=== PATIENT | male | born 1975 | race Caucasian/White ===

== ENCOUNTER 2022-05-17 15:15 | Observation (INO) ==
--- NOTE | 2022-05-17 15:42 | Emergency Department Note ---
Impression & Plan Intentional overdose, Grubbs disease, Depression, Nausea & vomiting, Acute dehydration ED Provider Note NAME: ANA PAULA LOPEZ AGE: 46 SEX: M : 1975 ARRIVES VIA: Ambulance INFORMANT: Patient, ED PROVIDER(S): John Paul Simeon MD CHIEF COMPLAINT: Overdose MEDICAL DECISION MAKING: Patient presents due to concern for risk for Adderall ingestion taking 1.5 mg around 1 PM. I did speak with poison control and the patient did have blood work completed along with an EKG and tox labs. The patient was ordered IV fluids. Patient control recommended a 6-hour observation period but given the relatively low amount believe that he would be medically cleared at that time. They did make additional recommendations including if the patient had prolonged QT to give mag or if the patient's QRS was wide to give bicarb. It is stated that sometimes this can cause some associated tachycardia and hypotension. They recommended supportive care. Patient does have noted ST changes with associated tachycardia and given the patient's vomiting do believe the patient would benefit from medical admission with psychiatric consult. I did speak with the on-call hospitalist Mat Hathaway PA-C and admitted to the medicine service by Dr. Brasher. Unsure as to whether or not EKG changes are new or old but troponin is negative. Patient denies any chest pains or shortness of breath. Document consults/transfers/case management discussions-also decisions not to test/admit/transfer Prior /Outside records reviewed: None Differential diagnosis: Mood disorder, infection, hypoglycemia, electrolyte abnormalities, cardiac sources, intracerebral event, toxicologic, trauma, neurologic, as well as other pathologies. Diagnostics, as interpreted by me: ECG: Sinus tachycardia, rate of 104, normal intervals normal axis T wave versions inferiorly and in V6 Repeat EKG interpreted by me sinus tachycardia, rate 131, normal intervals normal axis T wave versions inferiorly as well as laterally with associated slight depressions in V5 and V6. Cardiac monitoring: An order was placed for continuous cardiac monitoring. The monitor shows a rate of 117 withregular rhythm. Patient was placed on pulse oximetry Medical decision rules: None Imaging studies: See below HPI: Patient presents due to concern for an ingestion of 1.5 mg of Risperdal around [birth year]06[birth year]1929 today. This was after a verbal altercation over spending money with his mother. The patient does have a history of Grubbs's and primarily resides has most of his care in [place]. Patient denies that this is with the intent to kill himself. The patient does have a prior history of doing this in the past. Patient does have a known history of the Grubbs's and does take psych medications for this. Patient denies any chest pain shortness of breath nausea or vomiting. The patient has had some increased thirst. Patient denies any falls or trauma. No active SI HI or AVH. No alcohol tobacco or drug use. Patient does not have any access to guns or weapons. No additional exacerbating remitting factors PAST MEDICAL HISTORY: See Below PAST SURGICAL HISTORY: See Below SOCIAL HISTORY: See Below HOME MEDICATIONS: See Below ALLERGIES: See Below VITALS: See Below PHYSICAL EXAMINATION: GENERAL: NAD, wearing a mask, non-toxic. EYE EXAM: Normal conjunctiva. PERRL, no anisocoria and EOM's grossly intact w/o pain. Oropharynx: Dry mucous membranes, grossly normal dentition. NECK: Supple, no nuchal rigidity, no adenopathy, non-tender. No signs of meningismus. FROM of the neck with good chin to chest and neck extension. No stridor. LUNGS: Clear to auscultation. Normal chest wall mechanics. HEART: Tachycardic and regular, no MRG. ABDOMEN: Abdomen soft, non-tender, normo-active bowel sounds, no masses, no rebound or guarding. BACK: No CVA TTP. SKIN: No rashes and no bruising. UPPER EXTREMITIES: Upper extremities are grossly normal. LOWER EXTREMITIES: Grossly normal, no edema. NEURO EXAM: A&O x3, cranial nerves II-XII grossly intact, normal speech, moves all 4 extremities. Psych: Denies SI HI or AVH. Past Med/Surg History Medical History Grubbs disease Surgical History No pertinent past surgical history Social History Smoking Status: Never smoker Second Hand Exposure: No; Hx Alcohol Use: No Hx Substance Use: No Preferred Language: Kazakh Communication Ability: Effective Channel Development Director Required: No Beliefs That Will Affect Care: None Current Living Situation: Parent Current Living Situation Comment: lives with mother Feels Safe at Home: Yes Gender Identity: Male Assistive Devices: None Allergies Allergies Allergy/AdvReac Type Severity Reaction Status Date / Time No Known Allergies Allergy Verified 05/20/22 11:08 Home Meds Home Medications Medication Instructions Recorded Confirmed clonazepam 0.5 mg tablet 0.5 mg PO HS 05/17/22 05/20/22 paroxetine HCl 40 mg tablet (Paxil) 60 mg PO DAILY 05/20/22 05/20/22 risperidone 0.5 mg tablet 0.5 mg PO DAILY 05/20/22 05/20/22 risperidone 1 mg tablet 1 mg PO HS 05/20/22 05/20/22 Results & Data (ED) Vital Signs Vital Signs - 24 hr 05/17/22 15:04 05/17/22 15:25 05/17/22 15:25 Temperature 37.1 C Temperature Source Oral Pulse Rate 106 H Pulse Rate [Apical] 101 H Respiratory Rate 18 19 Respiratory Effort / Characteristics Non-Labored Respiratory Depth Normal Respiratory Pattern Regular Blood Pressure 139/95 Blood Pressure [Left Arm] 137/83 Blood Pressure Mean 109 Blood Pressure Mean [Left Arm] 101 Blood Pressure Position Lying Pulse Oximetry 95 93 92 Oxygen Delivery Method Room Air Room Air Room Air Oxygen Flow Rate 0 Sepsis Recent Fever Within 48 Hours No Sepsis New/Unexplained Change in Mental Status No Sepsis Action Taken by Nursing No Action Required 05/17/22 16:00 Temperature Temperature Source Pulse Rate 108 H Pulse Rate [Apical] Respiratory Rate 20 Respiratory Effort / Characteristics Respiratory Depth Respiratory Pattern Blood Pressure Blood Pressure [Left Arm] Blood Pressure Mean Blood Pressure Mean [Left Arm] Blood Pressure Position Pulse Oximetry 93 Oxygen Delivery Method Room Air Oxygen Flow Rate Sepsis Recent Fever Within 48 Hours Sepsis New/Unexplained Change in Mental Status Sepsis Action Taken by Alf Medications Current Medication List: was personally reviewed by me Laboratory Data Attestation: I reviewed the patient's lab results. 05/17/22 15:28 05/17/22 15:28 Lab Results 05/17/22 05/17/22 05/17/22 Range/Units 15:28 15:28 15:28 WBC 7.90 (4.8-10.8) K/ul RBC 5.15 (4.63-6.08) M/uL Hgb 15.8 (14.0-18.0) g/dl Hct 43.9 (40.1-51.0) % MCV 85.2 (80.0-100.0) fL MCH 30.7 (25.0-34.0) pg MCHC 36.0 (32.0-36.0) g/dL RDW Std Deviation 35.2 L (36.4-46.3) fL RDW Coeff of Joe 11.5 (11.5-14.5) % Plt Count 155 (130-400) K/uL MPV 9.2 L (9.4-12.4) fL Immature Gran % (Auto) 0.4 % Neut % (Auto) 86.6 % Lymph % (Auto) 7.3 % [place] % (Auto) 5.1 % Eos % (Auto) 0.5 % Baso % (Auto) 0.1 % Neut # (Auto) 6.84 H (1.4-6.5) K/uL Lymph # (Auto) 0.58 L (1.2-3.4) K/uL [place] # (Auto) 0.40 (0.24-0.82) K/uL Eos # (Auto) 0.04 (0-0.50) K/uL Baso # (Auto) 0.01 (0-0.2) K/uL Immature Gran # (Auto) 0.03 H (0.00-0.02) K/uL Sodium 139 (136-145) mmol/L Potassium 3.6 (3.5-5.1) mmol/L Chloride 104 (98-107) mmol/L Carbon Dioxide 25 (21-32) mmol/L Anion Gap 10 (3-11) BUN 10 (6-23) mg/dl Creatinine 0.94 (0.6-1.4) mg/dl Est Cr Clr Drug Dosing 96.1 ml/min Est GFR ( Amer) 110.7 ml/min Est GFR (Non-Af Amer) 95.5 ml/min BUN/Creatinine Ratio 10.6 (10-20) Glucose 143 H (70-99(Fasting)) mg/dl Calcium 9.3 (8.5-10.1) mg/dl Total Bilirubin 0.8 (0.2-1.0) mg/dl AST 26 (13-39) U/L ALT 38 (7-52) U/L Alkaline Phosphatase 67 (34-104) U/L Troponin I High Sens (0-20) pg/ml Total Protein 6.5 (6.0-8.3) gm/dl Albumin 4.3 (3.4-5.0) gm/dl Globulin 2.2 L (2.5-4.0) gm/dl Albumin/Globulin Ratio 2.0 (0.9-2) Urine Color Urine Appearance (Clear) Urine pH (4.5-7.5) Ur Specific [place] (1.000-1.030) Urine Protein (Negative) Urine Glucose (UA) (Negative) Urine Ketones (Negative) Urine Blood (Negative) Urine Nitrite (Negative) Urine Bilirubin (Negative) Urine Urobilinogen (Negative) Ur Leukocyte Esterase (Negative) Salicylates < 3.0 L (3.0-30) mg/dl Urine Opiates Screen (Neg) Ur Methadone, Qual (Neg) Acetaminophen < 3 L (10-30) ug/ml Urine Barbiturates (Neg) Ur Phencyclidine (PCP) (Neg) U Amphetamin/Meth Scrn (Neg) MDMA (Ecstasy) Screen (Neg) U Benzodiazepines Scrn (Neg) Ur Cocaine Metabolite (Neg) U Marijuana (THC) Screen (Neg) Ethyl Alcohol mg/dL (<10.0) mg/dl SARS-CoV-2, RNA, NAAT (NEGATIVE) 05/17/22 05/17/22 05/17/22 Range/Units 15:28 16:06 16:40 WBC (4.8-10.8) K/ul RBC (4.63-6.08) M/uL Hgb (14.0-18.0) g/dl Hct (40.1-51.0) % MCV (80.0-100.0) fL MCH (25.0-34.0) pg MCHC (32.0-36.0) g/dL RDW Std Deviation (36.4-46.3) fL RDW Coeff of Joe (11.5-14.5) % Plt Count (130-400) K/uL MPV (9.4-12.4) fL Immature Gran % (Auto) % Neut % (Auto) % Lymph % (Auto) % [place] % (Auto) % Eos % (Auto) % Baso % (Auto) % Neut # (Auto) (1.4-6.5) K/uL Lymph # (Auto) (1.2-3.4) K/uL [place] # (Auto) (0.24-0.82) K/uL Eos # (Auto) (0-0.50) K/uL Baso # (Auto) (0-0.2) K/uL Immature Gran # (Auto) (0.00-0.02) K/uL Sodium (136-145) mmol/L Potassium (3.5-5.1) mmol/L Chloride (98-107) mmol/L Carbon Dioxide (21-32) mmol/L Anion Gap (3-11) BUN (6-23) mg/dl Creatinine (0.6-1.4) mg/dl Est Cr Clr Drug Dosing ml/min Est GFR ( Amer) ml/min Est GFR (Non-Af Amer) ml/min BUN/Creatinine Ratio (10-20) Glucose (70-99(Fasting)) mg/dl Calcium (8.5-10.1) mg/dl Total Bilirubin (0.2-1.0) mg/dl AST (13-39) U/L ALT (7-52) U/L Alkaline Phosphatase (34-104) U/L Troponin I High Sens 9.1 (0-20) pg/ml Total Protein (6.0-8.3) gm/dl Albumin (3.4-5.0) gm/dl Globulin (2.5-4.0) gm/dl Albumin/Globulin Ratio (0.9-2) Urine Color Urine Appearance (Clear) Urine pH (4.5-7.5) Ur Specific [place] (1.000-1.030) Urine Protein (Negative) Urine Glucose (UA) (Negative) Urine Ketones (Negative) Urine Blood (Negative) Urine Nitrite (Negative) Urine Bilirubin (Negative) Urine Urobilinogen (Negative) Ur Leukocyte Esterase (Negative) Salicylates (3.0-30) mg/dl Urine Opiates Screen (Neg) Ur Methadone, Qual (Neg) Acetaminophen (10-30) ug/ml Urine Barbiturates (Neg) Ur Phencyclidine (PCP) (Neg) U Amphetamin/Meth Scrn (Neg) MDMA (Ecstasy) Screen (Neg) U Benzodiazepines Scrn (Neg) Ur Cocaine Metabolite (Neg) U Marijuana (THC) Screen (Neg) Ethyl Alcohol mg/dL < 10.0 (<10.0) mg/dl SARS-CoV-2, RNA, NAAT NEGATIVE (NEGATIVE) 05/17/22 05/17/22 Range/Units 19:01 19:01 WBC (4.8-10.8) K/ul RBC (4.63-6.08) M/uL Hgb (14.0-18.0) g/dl Hct (40.1-51.0) % MCV (80.0-100.0) fL MCH (25.0-34.0) pg MCHC (32.0-36.0) g/dL RDW Std Deviation (36.4-46.3) fL RDW Coeff of Joe (11.5-14.5) % Plt Count (130-400) K/uL MPV (9.4-12.4) fL Immature Gran % (Auto) % Neut % (Auto) % Lymph % (Auto) % [place] % (Auto) % Eos % (Auto) % Baso % (Auto) % Neut # (Auto) (1.4-6.5) K/uL Lymph # (Auto) (1.2-3.4) K/uL [place] # (Auto) (0.24-0.82) K/uL Eos # (Auto) (0-0.50) K/uL Baso # (Auto) (0-0.2) K/uL Immature Gran # (Auto) (0.00-0.02) K/uL Sodium (136-145) mmol/L Potassium (3.5-5.1) mmol/L Chloride (98-107) mmol/L Carbon Dioxide (21-32) mmol/L Anion Gap (3-11) BUN (6-23) mg/dl Creatinine (0.6-1.4) mg/dl Est Cr Clr Drug Dosing ml/min Est GFR ( Amer) ml/min Est GFR (Non-Af Amer) ml/min BUN/Creatinine Ratio (10-20) Glucose (70-99(Fasting)) mg/dl Calcium (8.5-10.1) mg/dl Total Bilirubin (0.2-1.0) mg/dl AST (13-39) U/L ALT (7-52) U/L Alkaline Phosphatase (34-104) U/L Troponin I High Sens (0-20) pg/ml Total Protein (6.0-8.3) gm/dl Albumin (3.4-5.0) gm/dl Globulin (2.5-4.0) gm/dl Albumin/Globulin Ratio (0.9-2) Urine Color Yellow Urine Appearance Clear (Clear) Urine pH 5.5 (4.5-7.5) Ur Specific [place] 1.006 (1.000-1.030) Urine Protein Negative (Negative) Urine Glucose (UA) Negative (Negative) Urine Ketones 1+ H (Negative) Urine Blood Negative (Negative) Urine Nitrite Negative (Negative) Urine Bilirubin Negative (Negative) Urine Urobilinogen Negative (Negative) Ur Leukocyte Esterase Negative (Negative) Salicylates (3.0-30) mg/dl Urine Opiates Screen Neg (Neg) Ur Methadone, Qual Neg (Neg) Acetaminophen (10-30) ug/ml Urine Barbiturates Neg (Neg) Ur Phencyclidine (PCP) Neg (Neg) U Amphetamin/Meth Scrn Neg (Neg) MDMA (Ecstasy) Screen Neg (Neg) U Benzodiazepines Scrn Neg (Neg) Ur Cocaine Metabolite Neg (Neg) U Marijuana (THC) Screen Neg (Neg) Ethyl Alcohol mg/dL (<10.0) mg/dl SARS-CoV-2, RNA, NAAT (NEGATIVE) Administered Medications Discontinued Medications Calcium Carbonate (Calcium Carbonate 500 Mg Chewable Tab) 1,500 mg PO BID PRN PRN Reason: Indigestion Stop: 06/17/22 16:22 Last Admin: 05/18/22 17:06 Dose: 1,500 mg Documented By: LJS Clonazepam (Clonazepam 0.5 Mg Tab) 0.5 mg PO HS [place] Stop: 06/17/22 20:59 Last Admin: 05/18/22 20:31 Dose: 0.5 mg Documented By: [id number] Sodium Chloride (Nss 1000ml) 1,000 mls @ 999 mls/hr IV .Q1H1M [place] Stop: 05/17/22 17:00 Last Infusion: 05/17/22 17:14 Dose: 0 mls/hr Documented By: [email or web address] Admin: 05/17/22 16:13 Dose: 999 mls/hr Documented By: MERCY Sodium Chloride (Nss 1000ml) 1,000 mls @ 999 mls/hr IV .Q1H1M ONE Stop: 05/17/22 18:59 Last Infusion: 05/17/22 19:02 Dose: 0 mls/hr Documented By: Admin: 05/17/22 18:01 Dose: 999 mls/hr Documented By: MERCY Sodium Chloride (Nss 1000ml) 1,000 mls @ 999 mls/hr IV .Q1H1M ONE Stop: 05/17/22 20:20 Last Infusion: 05/17/22 20:30 Dose: 0 mls/hr Documented By: Admin: 05/17/22 19:29 Dose: 999 mls/hr Documented By: MERCY Sodium Chloride (Nss) 500 mls @ 80 mls/hr IV .Q6H15M [place] Stop: 05/18/22 19:44 Last Infusion: 05/18/22 20:40 Dose: 0 mls/hr Documented By: [id number] Admin: 05/18/22 14:12 Dose: 80 mls/hr Documented By: PILO Famotidine 20 mg/ Syringe 5 mls @ 2.5 mls/min IV NOW ONE Stop: 05/18/22 16:46 Last Admin: 05/18/22 17:06 Dose: 2.5 mls/min Documented By: PILO Sodium Chloride (Nss) 500 mls @ 100 mls/hr IV .Q5H [place] Stop: 05/19/22 14:59 Last Infusion: 05/19/22 15:32 Dose: 0 mls/hr Documented By: Admin: 05/19/22 10:32 Dose: 100 mls/hr Documented By: TRINY Ondansetron HCl (Ondansetron Inj 2 Mg/Ml 2 Ml Vial) 4 mg IV NOW STA Stop: 05/17/22 19:21 Last Admin: 05/17/22 19:29 Dose: 4 mg Documented By: MERCY Discharge Plan Visit Data Chief Complaint: Overdose (Intentional) Stated Complaint: OVERDOSE ED Provider: John Paul Simeon Discharge Problem: Intentional overdose, Grubbs disease, Depression, Nausea & vomiting, Acute dehydration Patient Disposition: Admitted As Inpatient Discharge Instructions Interventions: ED Discharge Assessment Last Done: 05/17/22 21:21
[2022-05-17] MEDS ORDERED: SODIUM CHLORIDE 0.9% 1000ML 1,000 ML IV SCH (16:00)
[2022-05-17 16:14] LABS: Basophils # (auto) 0.01 K/uL (0-0.2); Basophils % (auto) 0.1 %; Eosinophils # (auto) 0.04 K/uL (0-0.50); Eosinophils % (auto) 0.5 %; Hematocrit (blood only) 43.9 % (40.1-51.0); Hemoglobin 15.8 g/dl (14.0-18.0); Immature Granulocytes # (auto) 0.03 K/uL (0.00-0.02); Immature Granulocytes % (auto) 0.4 %; Lymphocytes # (auto) 0.58 K/uL (1.2-3.4); Lymphocytes % (auto) 7.3 %; Mean Corpuscular Hemoglobin 30.7 pg (25.0-34.0); Mean Corpuscular Volume 85.2 fL (80.0-100.0); Mean Platelet Volume 9.2 fL (9.4-12.4); Monocytes % (auto) 5.1 %; Neutrophils # (auto) 6.84 K/uL (1.4-6.5); Neutrophils % (auto) 86.6 %; Platelet Count 155 K/uL (130-400); RDW Coefficient of Variation 11.5 % (11.5-14.5); RDW Standard Deviation 35.2 fL (36.4-46.3); Red Blood Count 5.15 M/uL (4.63-6.08)
--- NOTE | 2022-05-17 16:45 | Electrocardiogram Report ---
Test Reason : Blood Pressure : / mmHG Vent. Rate : 104 BPM Atrial Rate : 104 BPM P-R Int : 146 ms QRS Dur : 086 ms QT Int : 322 ms P-R-T Axes : 055 061 -53 degrees QTc Int : 423 ms Poor data quality, interpretation may be adversely affected Sinus tachycardia Left atrial enlargement T-wave inversion in Inferior leads , consider ischemia Abnormal ECG No previous ECGs available Confirmed by Abel Escudero ([id number]) on 05/17/2022 4:45:22 PM Referred By: Confirmed By:Abel Escudero
[2022-05-17 16:52] LABS: Albumin Level 4.3 gm/dl (3.4-5.0); BUN Creatinine Ratio 10.6 (10-20); Bilirubin,Total 0.8 mg/dl (0.2-1.0); Calcium 9.3 mg/dl (8.5-10.1); Creatinine Clr Calc Pharmacy 96.1 ml/min; Est GFR (African American) 110.7 ml/min; Est GFR (Non-African American) 95.5 ml/min; Globulin 2.2 gm/dl (2.5-4.0); Potassium 3.6 mmol/L (3.5-5.1); Total Protein 6.5 gm/dl (6.0-8.3)
[2022-05-17 16:55] LABS: Acetaminophen < 3 ug/ml (10-30); Salicylate < 3.0 mg/dl (3.0-30)
[2022-05-17] MEDS ORDERED: SODIUM CHLORIDE 0.9% 1000ML 1,000 ML IV ONE ×2 (17:59→19:20)
[2022-05-17 19:16] LABS: Appearance Urine Clear (Clear); Bilirubin Urine Negative (Negative); Blood Urine Negative (Negative); Color Urine Yellow; Glucose Urine UA Negative (Negative); Ketones Urine 1+ (Negative); Leukocyte Esterase Urine Negative (Negative); Nitrite Urine Negative (Negative); Protein Urine Negative (Negative); Specific Gravity Urine 1.006 (1.000-1.030); Urobilinogen Urine Negative (Negative); pH Urine 5.5 (4.5-7.5)
[2022-05-17] MEDS ORDERED: ONDANSETRON INJ 2 MG/ML 2 ML VIAL IV STA (19:20)
--- NOTE | 2022-05-17 19:39 | History & Physical Report ---
Date of Service May 17, 2022 Assessment & Plan (1) Intentional overdose: Plan: -Admit to med tele -Patient is currently afebrile, hemodynamically stable, and stable on RA -Took an unknown quantity of Risperdal earlier today after a verbal argument with his mother -Underwent 6 hour observation in the ED but is still persistently tachycardic at this time so Psych will not yet accept -Patient's ECG showing sinus tachycardia but no QT or QRS changes -S/P 2L NSS bolus in the ED and currently receiving a third liter -Continue to monitor on tele, am ECG ordered, if stable should be ok to transfer to psych -Psychiatry consult placed, suicide precautions and 1:1 ordered -AM CBC and CMP -Avoid giving any additional QT prolonging medications (2) Morton disease: Plan: -At neuro baseline -Hold risperdal for now -Will continue HS clonazepam -Will hold his paroxetine for now Plan The patient was discussed with Dr. Iqbal at the time of the admission History of Present Illness Chief Complaint: Intentional overdose Primary Care Provider: OLVIN PEREA Demetrius is a 46 year old male with a PMH significant for Morton's disease, who presented to the [facility] ED on 05/17/22 via EMS after an intentional overdose. Per the ED, the patient lives with his mother and had a disagreement with her earlier today. He became upset and took approximately 1.5 mg PO Risperdal. In the ED the patient was found to be afebrile, hemodynamically stable, and stable on RA. He has been persistently tachycardic in the low 100's since his arrival. Labs were remarkable for WBC WNL, stable Hgb and platelets, Cr of 0.94 (unknown baseline), stable electrolytes, glucose of 143, clean UA, and negative alcohol, Salicylate, and acetaminophen levels. At the time of the admission the rest of the patient's toxicology screen was pending, he was found to be covid negative. The ED called poison control who recommended a 6 hour observation with baseline blood work and ECG. They made additional recommendations to give mag if he was noted to have a prolonged QT, if he was noted to have a wide QRS they recommended giving sodium bicarb. After the 6 hour observation was over he was noted to still be persistently tachycardic despite receiving 2L NSS. At the time of the exam the patient was resting comfortably in bed in no acute distress with his mother sitting bedside. They state that this afternoon the patient too an unknown quantity of his Risperdal after getting into a verbal argument. His mom states that when she looked in the bottle there were only a few pills covering the bottom of the bottle. When asked, the patient denies current suicidal and homicidal ideations. He denies recent fever, chills, headache, changes in vision, hearing, taste, and smell, chest pain, SOB, abdomin al pain, dysuria, hematuria, and recent falls. He did have some nausea earlier and one episode of vomiting but this has resolved after one dose of zofran. Please refer to Dr. Iqbal's attestation for any changes to the treatment plan Allergies Allergy/AdvReac Type Severity Reaction Status Date / Time No Known Allergies Allergy Unverified 05/17/22 19:26 Home Medications Medication Instructions Recorded Confirmed Type clonazepam 0.5 mg tablet 0.5 mg PO HS 05/17/22 05/17/22 History paroxetine HCl 30 mg tablet 60 mg PO QAM 05/17/22 05/17/22 History risperidone 0.5 mg tablet 0.5 mg PO QAM 05/17/22 05/17/22 History risperidone 1 mg tablet 1 mg PO HS 05/17/22 05/17/22 History Past Med/Surg History Social History Smoking Status: Never smoker Second Hand Exposure: No; Do You Dip or Chew Tobacco: No; Hx Alcohol Use: No Hx Substance Use: No Preferred Language: Tristanian Communication Ability: Effective Corn Lab Technician Required: No Beliefs That Will Affect Care: None Current Living Situation: Parent Current Living Situation Comment: lives with mother Other Information That Helps Us Care for You: No Feels Safe at Home: Yes Safety Concerns: Feels Safe At This Time Gender Identity: Male Assistive Devices Comment: shower chair Review of Systems Review of Systems: Denies current fever, chills, headache, changes in vision, hearing, taste, and smell, chest pain, SOB, cough, abdominal pain, diarrhea, hematemesis, melena, dysuria, hematuria, and recent falls. All systems have been reviewed and are otherwise negative. Physical Exam Physical Exam: Physical Exam: General: In no acute distress, stated age, well-nourished, good hygiene, HEENT: Normocephalic, atraumatic, no scleral icterus, pupils around round, symmetrical, and reactive to light, moist mucus membranes, trachea midline, no thyromegaly Chest/Pulm: No respiratory distress, symmetrical chest expansion, clear breath sounds throughout Cardiac: tachycardic rate, regular rhythm, no murmurs noted Abdomen: Negative for ascites and bruising, normoactive bowel sounds, soft, non-tender to palpation throughout Musculoskeletal: Symmetrical and without signs of acute trauma, upper and lower extremities with full ROM, no atrophy, spasticity, or flaccidity Extremities: Radial, dorsalis pedis, and posterior tibial pulses are intact and symmetrical, no edema noted in the BL LE's Skin: Warm, dry, no rashes , lesions, or scars noted Neuro: Alert and oriented to person, place, month, year, and president, no focal defects, CN II-XII tested and intact, finger to nose test negative, patient is currently tremulous due to being cold and anxious Psych: No acute distress, is anxious but polite cooperative during the exam Results & Data Results & Data ([facility]) Vital Signs (Past 12 Hours) Vital Signs Temp Pulse Pulse Resp BP BP Pulse Ox 05/17/22 16:00 108 H 20 93 05/17/22 15:25 101 H 19 137/83 92 05/17/22 15:25 93 05/17/22 15:04 37.1 C 106 H 18 139/95 95 O2 Del Method O2 Flow Rate 05/17/22 16:00 Room Air 05/17/22 15:25 Room Air 05/17/22 15:25 Room Air 0 05/17/22 15:04 Room Air Laboratory Results Abnormal lab results 05/17/22 05/17/22 05/17/22 Range/Units 15:28 15:28 15:28 RDW Std Deviation 35.2 L (36.4-46.3) fL MPV 9.2 L (9.4-12.4) fL Neut # (Auto) 6.84 H (1.4-6.5) K/uL Lymph # (Auto) 0.58 L (1.2-3.4) K/uL Immature Gran # (Auto) 0.03 H (0.00-0.02) K/uL Glucose 143 H (70-99(Fasting)) mg/dl Globulin 2.2 L (2.5-4.0) gm/dl Urine Ketones (Negative) Salicylates < 3.0 L (3.0-30) mg/dl Acetaminophen < 3 L (10-30) ug/ml 05/17/22 Range/Units 19:01 RDW Std Deviation (36.4-46.3) fL MPV (9.4-12.4) fL Neut # (Auto) (1.4-6.5) K/uL Lymph # (Auto) (1.2-3.4) K/uL Immature Gran # (Auto) (0.00-0.02) K/uL Glucose (70-99(Fasting)) mg/dl Globulin (2.5-4.0) gm/dl Urine Ketones 1+ H (Negative) Salicylates (3.0-30) mg/dl Acetaminophen (10-30) ug/ml ECG Additional Comments: Poor data quality, interpretation may be adversely affected Sinus tachycardia Left atrial enlargement T-wave inversion in Inferior leads , consider ischemia Abnormal ECG No previous ECGs available Confirmed by Abel Escudero ([id number]) on 05/17/2022 4:45:22 PM Code Status & VTE Plan Code Status Full code VTE Prophylaxis Plan VTE Prophylaxis will be ordered: Yes Supervising Physician Co-Signing Physician Notes Patient seen and examined, chart reviewed, case discussed with BONIFACIO Hathaway and I agree with the assessment and plan as documented above. In brief, patient is a 46yo male with Morton disease presenting with intentional overdose of Risperdal. Patient had an argument with his mother and became upset and took an unknown number of Risperdal tabs. Patient has completed the 6 hours of recommended observation time as recommended by Poison Control. He has remained tachycardic, therefore, overnight medical admission is being requested. Patient with no additional complaints at this time. Exam - resting comfortably, NAD Skin - intact HEENT - MMM, neck supple Heart - +S1/S2, regular, tachycardic, no m/r/g Lungs - CTA Abd - soft, NT/ND Labs and images reviewed UTox results are unremarkable, EtOH negative as well. 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 Patient remains tachycardic - sinus with normal intervals and waveforms appreciated on EKG. He has received IVF in the ER. No need for Magnesium or Bicarbonate administration. -Continue cardiac monitoring - monitor intervals. Administer Mg for QT prolongation and HCO3 for QRS prolongation. -Maintain suicide precautions -Hold Paroxetine and Risperdal -Psychiatry consultation appreciated -Remainder as above PG Care Time/CCT Total # of Minutes Spent Total Time Spent with Patient: Total time spent is greater than 50% in coordination of care (as documented) at patient's floor/unit and/or counseling patient: [place] [address] INT INP/OBS CARE 3/75MIN Patient Type Established Medical Decision Making High Complexity Diagnoses Intentional overdose T50.902A Morton disease G10
[2022-05-17 19:40] LABS: Amphetamines+Metham, Urine Neg (Neg); Barbiturates, Urine Neg (Neg); Benzodiazepine, Urine Neg (Neg); Cocaine, Urine Neg (Neg); MDMA (Ecstacy), Urine Neg (Neg); Methadone, Urine Neg (Neg); Opiate, Urine Neg (Neg); Phencyclidine, Urine Neg (Neg)
[2022-05-17] MEDS ORDERED: ACETAMINOPHEN 325 MG TAB PO PRN (21:43)
[2022-05-18 08:34] LABS: Hematocrit (blood only) 41.2 % (40.1-51.0); Hemoglobin 14.8 g/dl (14.0-18.0); Mean Corpuscular Hgb Conc 35.9 g/dL (32.0-36.0); Mean Corpuscular Volume 86.4 fL (80.0-100.0); Mean Platelet Volume 9.3 fL (9.4-12.4); Platelet Count 154 K/uL (130-400); RDW Coefficient of Variation 11.7 % (11.5-14.5); RDW Standard Deviation 36.8 fL (36.4-46.3); Red Blood Count 4.77 M/uL (4.63-6.08); White Blood Count 7.49 K/ul (4.8-10.8)
[2022-05-18] MEDS ORDERED: clonazePAM 0.5 MG TAB PO PRN (08:37)
--- NOTE | 2022-05-18 08:39 | Hospitalist Progress Note ---
Date of Service May 18, 2022 Assessment & Plan (1) Intentional overdose: Plan: Patient admitted after ingestion of unknown amount of risperidone. Poison control was contacted and recommended observation on telemetry and replacement of bicarb and magnesium levels if they were low. These have been normal Given 2L NSS bolus on admit, additional 1L NSS Labs stable on repeat Has been NSR on monitor with exception of tachycardia this morning up to 170s w/ ambulation. Denies any CP/SOB. Repeat EKG w/ concerns (initially w/ nonspecific change in ST seg inferior leads/ST depression in lateral leads/TWI in inferolateral leads) ECHO obtained given no prior CAD. ECHO essentially normal study, no wma. Grade I diastolic dysfunction Psych consulted -- patient agreeable to inpatient treatment, possible with bed tomorrow if medically clear Denies any SI/HI currently, however is impulsive and remains 1:1 per discussion with psychiatry for safety Patient with reported improvement of appetite, encouraged PO fluid intake Reports mood stable, however does have flat affect. 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 Prior overdose and inpatient psych treatment in past x 1. Mom stated patient frequently upset when not able to do/go where he wants. She also was inquiring about additional assistance at home. Messaged CM for additional resources Also consulted PT/OT Urine drug screen negative. EKG w/o QTX prolongation. Avoid QT prolonging agents Did have some reports nausea/GI upset this afternoon, tums/pepcid provided -- monitor response. 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 Has provider sees 2x/yr in [place] but no local assistance/psych care Psych to help arrange at d/c from inpatient once accepted (3) Nausea: Plan: reported this afternoon -- tums/pepcid ordered monitor response again, avoiding any QTC prolonging agents (4) Depression: Plan: mood stable at present but depressed affect, see above psych on consult, home meds held w/ exception of clonazepam further recs per psych during inpatient treatment appreciated Plan continued inpatient stay IVF for dehydration, holding Risperdal/paroxetine but continue clonazepam psych on consult possible d/c to [facility] tomorrow if stable on tele Admission and Anticipated Discharge Date Admission Date: May 17, 2022 Supervising Physician Co-Signing Physician Notes PA Supervision Note: I did not personally see or examine the patient today, but I verified all galvez points of FAUSTO Jj's assessment and plan with the following exceptions/additions: None Subjective evaluated this afternoon following lunch, reports doing alright feeling a little dizzy at times when up and moving around. HR goes up to 170 this morning -- per nurse, HR elevated w/ ambulation but much improved once back in bed. ECHO order, but not yet read given EKGs on admit. Denies chest pain. Unsure how much risperdal he took, mother also unsure (at bedside). Agreeable to inpatient psych treatment. Denies SI/HI. States his mood had been stable prior to argument, no increased depression/anxiety. Has huntingdons, runs on father's side. Symptoms started around age 38. Denies any pain anywhere or spasms causing difficulty/stress. Discussed monitoring on telemetry/overnight and possible inpatient treatment here if stable/they have a bed tomorrow. Mother ok w/ taking care of him at home but would like additional assistance.Will message CM about concerns to see what is able to be offered. Reports decent appetite but appears dehydrated on exam. Asked if able to provide anything, he states water. Discussed will also order additional IVF for dehydration on exam and monitor overnight. Questions/concerns addressed at this time. Remains 1:1 for safety/impulsiveness. Review of Systems Review of Systems: All systems reviewed & are unremarkable except as noted in HPI & below Physical Exam Physical Exam: General: WD male laying in bed, NAD, mother at bedside, 1:1 in room HEENT: head normocephalic, atraumatic, mm slightly dry, trachea midline Resp: CTAB, slightly diminished in the bases due to effort, no w/c/r, on room air CV: RRR (reported sinus tachy up to 170s this morning w/ ambulation), no m/r/g, no pitting edema, pulses palpable GI: +BS, soft/NT : no cross MSK/Neuro: follows commands, no focal deficits Psych: AOx3, cooperative with care, denies SI/HI ideations Results & Data Results & Data ([facility]) Vital Signs (Past 12 Hours) Vital Signs Temp Pulse Pulse Pulse Resp BP Pulse Ox 05/18/22 07:15 36.5 C 81 18 135/82 93 05/18/22 04:00 36.4 C L 88 18 130/77 93 05/17/22 23:11 93 H 05/17/22 21:52 101 H 05/17/22 21:52 36.6 C 102 H 16 137/84 93 05/17/22 21:00 98 H 16 137/82 93 05/17/22 20:50 99 H 20 136/80 93 O2 Del Method 05/18/22 07:15 Room Air 05/18/22 04:00 Room Air 05/17/22 23:11 05/17/22 21:52 05/17/22 21:52 Room Air 05/17/22 21:00 05/17/22 20:50 Room Air Laboratory Results 05/18/22 05/18/22 05/17/22 Range/Units 08:04 08:04 19:01 WBC 7.49 (4.8-10.8) K/ul RBC 4.77 (4.63-6.08) M/uL Hgb 14.8 (14.0-18.0) g/dl Hct 41.2 (40.1-51.0) % MCV 86.4 (80.0-100.0) fL MCH 31.0 (25.0-34.0) pg MCHC 35.9 (32.0-36.0) g/dL RDW Std Deviation 36.8 (36.4-46.3) fL RDW Coeff of Joe 11.7 (11.5-14.5) % Plt Count 154 (130-400) K/uL MPV 9.3 L (9.4-12.4) fL Sodium 141 (136-145) mmol/L Potassium 3.8 (3.5-5.1) mmol/L Chloride 109 H (98-107) mmol/L Carbon Dioxide 25 (21-32) mmol/L Anion Gap 7 (3-11) BUN 7 (6-23) mg/dl Creatinine 0.91 (0.6-1.4) mg/dl Est Cr Clr Drug Dosing 107.2 ml/min Est GFR ( Amer) 115.1 ml/min Est GFR (Non-Af Amer) 99.3 ml/min BUN/Creatinine Ratio 7.7 L (10-20) Glucose 97 (70-99(Fasting)) mg/dl Calcium 8.8 (8.5-10.1) mg/dl Magnesium 2.0 (1.7-2.4) mg/dl Total Bilirubin 0.9 (0.2-1.0) mg/dl AST 21 (13-39) U/L ALT 31 (7-52) U/L Alkaline Phosphatase 62 (34-104) U/L Troponin I High Sens (0-20) pg/ml Total Protein 6.1 (6.0-8.3) gm/dl Albumin 4.3 (3.4-5.0) gm/dl Globulin 1.8 L (2.5-4.0) gm/dl Albumin/Globulin Ratio 2.4 H (0.9-2) Urine Color Urine Appearance (Clear) Urine pH (4.5-7.5) Ur Specific [place] (1.000-1.030) Urine Protein (Negative) Urine Glucose (UA) (Negative) Urine Ketones (Negative) Urine Blood (Negative) Urine Nitrite (Negative) Urine Bilirubin (Negative) Urine Urobilinogen (Negative) Ur Leukocyte Esterase (Negative) Urine Opiates Screen Neg (Neg) Ur Methadone, Qual Neg (Neg) Urine Barbiturates Neg (Neg) Ur Phencyclidine (PCP) Neg (Neg) U Amphetamin/Meth Scrn Neg (Neg) MDMA (Ecstasy) Screen Neg (Neg) U Benzodiazepines Scrn Neg (Neg) Ur Cocaine Metabolite Neg (Neg) U Marijuana (THC) Screen Neg (Neg) 05/17/22 05/17/22 Range/Units 19:01 15:28 WBC (4.8-10.8) K/ul RBC (4.63-6.08) M/uL Hgb (14.0-18.0) g/dl Hct (40.1-51.0) % MCV (80.0-100.0) fL MCH (25.0-34.0) pg MCHC (32.0-36.0) g/dL RDW Std Deviation (36.4-46.3) fL RDW Coeff of Joe (11.5-14.5) % Plt Count (130-400) K/uL MPV (9.4-12.4) fL Sodium (136-145) mmol/L Potassium (3.5-5.1) mmol/L Chloride (98-107) mmol/L Carbon Dioxide (21-32) mmol/L Anion Gap (3-11) BUN (6-23) mg/dl Creatinine (0.6-1.4) mg/dl Est Cr Clr Drug Dosing ml/min Est GFR ( Amer) ml/min Est GFR (Non-Af Amer) ml/min BUN/Creatinine Ratio (10-20) Glucose (70-99(Fasting)) mg/dl Calcium (8.5-10.1) mg/dl Magnesium (1.7-2.4) mg/dl Total Bilirubin (0.2-1.0) mg/dl AST (13-39) U/L ALT (7-52) U/L Alkaline Phosphatase (34-104) U/L Troponin I High Sens 9.1 (0-20) pg/ml Total Protein (6.0-8.3) gm/dl Albumin (3.4-5.0) gm/dl Globulin (2.5-4.0) gm/dl Albumin/Globulin Ratio (0.9-2) Urine Color Yellow Urine Appearance Clear (Clear) Urine pH 5.5 (4.5-7.5) Ur Specific [place] 1.006 (1.000-1.030) Urine Protein Negative (Negative) Urine Glucose (UA) Negative (Negative) Urine Ketones 1+ H (Negative) Urine Blood Negative (Negative) Urine Nitrite Negative (Negative) Urine Bilirubin Negative (Negative) Urine Urobilinogen Negative (Negative) Ur Leukocyte Esterase Negative (Negative) Urine Opiates Screen (Neg) Ur Methadone, Qual (Neg) Urine Barbiturates (Neg) Ur Phencyclidine (PCP) (Neg) U Amphetamin/Meth Scrn (Neg) MDMA (Ecstasy) Screen (Neg) U Benzodiazepines Scrn (Neg) Ur Cocaine Metabolite (Neg) U Marijuana (THC) Screen (Neg) Diagnostic Findings ECHOCARDIOGRAM The study was technically adequate. Left ventricle is normal in size. There is mild concentric left ventricular hypertrophy. The left ventricular ejection fraction is grossly normal. Ejection fraction equals 55 to 60%. The left ventricle wall motion is normal. Right ventricle is grossly normal in size. Right ventricular systolic function is normal as assessed by tricuspid annular plane systolic excursion. Left atrium normal in size right atrial size is normal. No ASD detected; PFO was not assessed. Aortic valve is trileaflet. The aortic valve opens well. There is no significant aortic regurgitation. No hemodynamically significant of aortic valvular stenosis. Grade 1 diastolic dysfunction is noted. 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
[2022-05-18 09:02] LABS: Albumin Globulin Ratio 2.4 (0.9-2); Albumin Level 4.3 gm/dl (3.4-5.0); BUN Creatinine Ratio 7.7 (10-20); Bilirubin,Total 0.9 mg/dl (0.2-1.0); Calcium 8.8 mg/dl (8.5-10.1); Creatinine Clr Calc Pharmacy 107.2 ml/min; Est GFR (African American) 115.1 ml/min; Est GFR (Non-African American) 99.3 ml/min; Globulin 1.8 gm/dl (2.5-4.0); Potassium 3.8 mmol/L (3.5-5.1); Total Protein 6.1 gm/dl (6.0-8.3)
--- NOTE | 2022-05-18 12:28 | Psychiatric Consultation ---
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 Acute risk of self-harm remains elevated and high given suicide attempt requiring medical admission, recent worsening of depressive symptoms, history of prior attempts, impulsivity, limited insight, and chronic medical illness known for high risk for suicide. Given elevated risk of harm to self they meet criteria for inpatient psychiatric care for diagnostic clarification, safety/stabilization, development of additional coping skills, medication management and disposition/safety planning once medically stable. If they do not agree to voluntary treatment at that time they will meet criteria for 302 status based on severity of suicide attempt and ongoing modifiable risk factors. (1) Rudi disease: (2) Intentional overdose: (3) Depression: Plan -Continue 1-on-1 for risk of harm to self -Do not discharge or allow to leave AMA -Hold psych medications for now except Klonopin -Once medically cleared plan for psychiatric hospitalization (either 201 or 302 status). -Message left for his mother for additional collateral information Risk Factors Assessment Do You Have Access To A Gun?: No Protective Factors Assessment Employed: No Psych History Identifying Data 46 yo man with a history of Rudi's disease and depression admitted medically following impulsive suicide attempt via overdose of risperidone. Psychiatry consulted for risk assessment and recommendations. Chief Complaint "It was a sudden thing". History of Present Illness Bulmaro was admitted after taking an unknown quantity (he estimates a handful) of his risperidone tablets following an argument with his mother. They were arguing as he wanted her to give him money and take him to the grocery store and when she wouldn't he impulsively went into her room and took the medications. He wasn't sure what would happen when he took the pills but was experiencing suicidal thoughts. Today he denies SI and is glad to be alive. He feels his mood is better today but he's been depressed at times, struggles to cite specific depression symptoms but agrees that he's been more irritable and impulsive recently. He's been experiencing more episodes of choking and difficulty swallowing from his Berrien's disease. He is on disability and lives with his mother. History of psychiatric hospitalizations in the past "a long time ago" and history of a prior suicide attempt but he cannot recall the details. He isn't sure about his current medications as his mother manages this. Appears he is prescribed Klonopin 0.5mg HS, Paxil 60mg qd, risperidone 0.5mg qAM and 1mg HS. His medications are managed by his neurologist at the [facility] Berrien's disease clinic. He is interested in inpatient psychiatric treatment and thinks this would help him with his mood changes and impuslivity. Past Psychiatric History Current Psychiatric Diagnosis: Meade's Disease Outpatient Services: neurologist at [facility] Previous Psych Admissions: in past Do You Have Access To A Gun?: No History of Previous Suicide Attempt: Yes Allergies Allergy/AdvReac Type Severity Reaction Status Date / Time No Known Allergies Allergy Unverified 05/17/22 19:26 Home Medications Medication Instructions Recorded Confirmed Type clonazepam 0.5 mg tablet 0.5 mg PO HS 05/17/22 05/17/22 History paroxetine HCl 30 mg tablet 60 mg PO QAM 05/17/22 05/17/22 History risperidone 0.5 mg tablet 0.5 mg PO QAM 05/17/22 05/17/22 History risperidone 1 mg tablet 1 mg PO HS 05/17/22 05/17/22 History Personal History Living Arrangements: Home Employment Status: Disabled Beliefs That Will Affect Care: None Patient History Social History Smoking Status: Never smoker Second Hand Exposure: No; Do You Dip or Chew Tobacco: No; Hx Alcohol Use: No Hx Substance Use: No Preferred Language: Estonian Communication Ability: Effective 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 Beliefs That Will Affect Care: None Current Living Situation: Parent Current Living Situation Comment: lives with mother Other Information That Helps Us Care for You: No Feels Safe at Home: Yes Safety Concerns: Feels Safe At This Time Gender Identity: Male Assistive Devices Comment: shower chair Physical Exam Psychiatric: Orientation: alert and oriented x 3 Apperance: appropriately dressed and appropriately groomed Eye Contact: good eye contact Motor Behavior: no abnormal motor movements Speech: + abnormal rate/rhythm/volume of speech (dysarthria) Affect: + depressed affect Mood: + depressed mood Thought Process: goal directed thought process Thought Content: reality based without delusions Suicidal Thoughts: denies suicidal thoughts (but s/p suicide attempt) Homicidal Thoughts: denies homicidal thoughts H allucinations: no auditory hallucinations and no visual hallucinations Cognition: attention grossly intact and language grossly intact Estimated I ntelligence: consistent with education level Insight: + limited insight Judgement: + limited judgement Vital Signs (Past 24 Hours): Last Vital Signs Temp 36.5 C 05/18/22 07:15 Pulse 81 05/18/22 07:15 Resp 18 05/18/22 07:15 BP 135/82 05/18/22 07:15 Pulse Ox 93 05/18/22 07:15 O2 Del Method 05/18/22 07:15 O2 Flow Rate 0 05/17/22 15:25 Review of Systems All systems reviewed & are unremarkable except as noted in HPI & below Coding Level of Care Code INP/OBS CONSULT LVL 3, 45 MIN Diagnoses Berrien disease G10 Intentional overdose T50.902A Depression F32.A
--- NOTE | 2022-05-18 13:06 | XCELERA ---
[id number]
[2022-05-18] MEDS ORDERED: SODIUM CHLORIDE 0.9% 500 ML IV SCH (13:30)
--- NOTE | 2022-05-18 13:47 | Electrocardiogram Report ---
Test Reason : Blood Pressure : / mmHG Vent. Rate : 131 BPM Atrial Rate : 131 BPM P-R Int : 154 ms QRS Dur : 090 ms QT Int : 286 ms P-R-T Axes : 051 058 251 degrees QTc Int : 422 ms Sinus tachycardia Possible Left atrial enlargement Abnormal ECG When compared with ECG of 17-MAY-2022 15:23, No significant change was found Confirmed by Christiano Mason ([id number]) on 05/18/2022 1:47:17 PM Referred By: REFERRED SELF Confirmed By:Christiano Mason
--- NOTE | 2022-05-18 14:06 | Electrocardiogram Report ---
Test Reason : Blood Pressure : / mmHG Vent. Rate : 093 BPM Atrial Rate : 093 BPM P-R Int : 160 ms QRS Dur : 086 ms QT Int : 352 ms P-R-T Axes : 065 095 028 degrees QTc Int : 437 ms Normal sinus rhythm Rightward axis Borderline ECG When compared with ECG of 17-MAY-2022 18:00, (unconfirmed) Non-specific change in ST segment in Inferior leads ST no longer depressed in Lateral leads T wave inversion less evident in Inferior leads T wave inversion no longer evident in Lateral leads Confirmed by Christiano Mason ([id number]) on 05/18/2022 2:05:36 PM Referred By: REFERRED SELF Confirmed By:Christiano Mason
[2022-05-18] MEDS ORDERED: CALCIUM CARBONATE 500 MG CHEWABLE TAB PO PRN (16:23)
[2022-05-18] MEDS ORDERED: FAMOTIDINE 20 MG in SYRINGE 3 ML IV ONE (16:45)
[2022-05-18] MEDS ORDERED: clonazePAM 0.5 MG TAB PO SCH (21:00)
[2022-05-19 07:44] LABS: Hematocrit (blood only) 41.1 % (40.1-51.0); Hemoglobin 14.9 g/dl (14.0-18.0); Mean Corpuscular Hemoglobin 30.6 pg (25.0-34.0); Mean Corpuscular Hgb Conc 36.3 g/dL (32.0-36.0); Mean Corpuscular Volume 84.4 fL (80.0-100.0); Mean Platelet Volume 9.6 fL (9.4-12.4); Platelet Count 162 K/uL (130-400); RDW Coefficient of Variation 11.4 % (11.5-14.5); RDW Standard Deviation 34.9 fL (36.4-46.3); Red Blood Count 4.87 M/uL (4.63-6.08); White Blood Count 6.72 K/ul (4.8-10.8)
[2022-05-19 08:09] LABS: BUN Creatinine Ratio 7.9 (10-20); Creatinine Clr Calc Pharmacy 89.4 ml/min; Est GFR (African American) 101.5 ml/min; Est GFR (Non-African American) 87.5 ml/min; Potassium 3.7 mmol/L (3.5-5.1)
--- NOTE | 2022-05-19 08:26 | Hospitalist Progress Note ---
Date of Service May 19, 2022 Assessment & Plan Admission and Anticipated Discharge Date Admission Date: May 17, 2022 Subjective eval this morning, states feeling a little better issues with breakfast w/ chronic issues swallowing w/ his huntingdon and they sent up 1 hard boiled egg and a sausage link. discussed scrabbled eggs, he was excited and sat up directly in bed. mood stable, and wanting to go to inpatient today, discussed hopeful bed this afternoon. encouraged continued PO intake, will order 500cc NS for today and plan for d/c after completion. tums w/ resolution of nausea. no chest pain/fevers/chills/shortness of breath or palpitations endorsed. questions/concerns addressed Results & Data Results & Data ([facility]) Vital Signs (Past 12 Hours) Vital Signs Temp Pulse Pulse Resp BP Pulse Ox O2 Del Method 05/19/22 07:25 59 L 05/19/22 06:37 36.5 C 80 18 151/84 H 94 Room Air 05/18/22 22:40 62 PG Care Time/CCT Total # of Minutes Spent Total Time Spent with Patient: Total time spent is greater than 50% in coordination of care (as documented) at patient's floor/unit and/or counseling patient: Coding
--- NOTE | 2022-05-19 09:47 | Discharge Summary ---
Date of Service May 19, 2022 Admission HPI Per Admitting Provider Demetrius is a 46 year old male with a PMH significant for Canyon's disease, who presented to the [facility] ED on 05/17/22 via EMS after an intentional overdose. Per the ED, the patient lives with his mother and had a disagreement with her earlier today. He became upset and took approximately 1.5 mg PO Risperdal. In the ED the patient was found to be afebrile, hemodynamically stable, and stable on RA. He has been persistently tachycardic in the low 100's since his arrival. Labs were remarkable for WBC WNL, stable Hgb and platelets, Cr of 0.94 (unknown baseline), stable electrolytes, glucose of 143, clean UA, and negative alcohol, Salicylate, and acetaminophen levels. At the time of the admission the rest of the patient's toxicology screen was pending, he was found to be covid negative. The ED called poison control who recommended a 6 hour observation with baseline blood work and ECG. They made additional recommendations to give mag if he was noted to have a prolonged QT, if he was noted to have a wide QRS they recommended giving sodium bicarb. After the 6 hour observation was over he was noted to still be persistently tachycardic despite receiving 2L NSS. At the time of the exam the patient was resting comfortably in bed in no acute distress with his mother sitting bedside. They state that this afternoon the patient too an unknown quantity of his Risperdal after getting into a verbal argument. His mom states that when she looked in the bottle there were only a few pills covering the bottom of the bottle. When asked, the patient denies current suicidal and homicidal ideations. He denies recent fever, chills, headache, changes in vision, hearing, taste, and smell, chest pain, SOB, abdominal pain, dysuria, hematuria, and recent falls. He did have some nausea earlier and one episode of vomiting but this has resolved after one dose of zofran. Please refer to Dr. Iqbal's attestation for any changes to the treatment plan Admission Exam Per Admitting Provider Physical Exam: General:In no acute distress, stated age, well-nourished, good hygiene, HEENT:Normocephalic, atraumatic, no scleral icterus, pupils around round, symmetrical, and reactive to light, moist mucus membranes, trachea midline, no thyromegaly Chest/Pulm:No respiratory distress, symmetrical chest expansion, clear breath sounds throughout Cardiac:tachycardic rate, regular rhythm, no murmurs noted Abdomen:Negative for ascites and bruising, normoactive bowel sounds, soft, non-tender to palpation throughout Musculoskeletal:Symmetrical and without signs of acute trauma, upper and lower extremities with full ROM, no atrophy, spasticity, or flaccidity Extremities:Radial, dorsalis pedis, and posterior tibial pulses are intact and symmetrical, no edema noted in the BL LE's Skin:Warm, dry, no rashes , lesions, or scars noted Neuro:Alert and oriented to person, place, month, year, and president, no focal defects, CN II-XII tested and intact, finger to nose test negative, patient is currently tremulous due to being cold and anxious Psych:No acute distress, is anxious but polite cooperative during the exam Principal Diagnosis Intential Overdose Discharge Exam General: WD male laying in bed, NAD, mother at bedside, 1:1 in room HEENT: head normocephalic, atraumatic, mm slightly dry, trachea midline Resp: CTAB, slightly diminished in the bases due to effort, no w/c/r, on room air CV: RRR, no m/r/g, no pitting edema, pulses palpable GI: +BS, soft/NT : no cross MSK/Neuro: follows commands, no focal deficits Psych: AOx3, cooperative with care, denies SI/HI ideations Discharge Data Allergies Allergy/AdvReac Type Severity Reaction Status Date / Time No Known Allergies Allergy Unverified 05/17/22 19:26 Consultations 05/17/22 19:56 ED Decision to Admit Stat 05/17/22 20:09 Consult Psychiatry Routine Hospital Course (1) Intentional overdose: Patient admitted after ingestion of unknown amount of risperidone. Poison control was contacted and recommended observation on telemetry and replacement of bicarb and magnesium levels if they were low. These have been normal Held paroxetine/risperidol, continue clonazepam to prevent withdrawal Given 2L NSS bolus on admit, additional IVF as needed for dehydration Improvement in PO appetite. Mindful to be offering fluids, as he sometimes does not ask. Give 500cc prior to d/c, encouraged PO intake Also mindful of any swallowing difficulties, reports choking at baseline w/ his disease but tolerating diet without issue, lungs clear on exam EKG w/ concerns (initially w/ nonspecific change in ST seg inferior leads/ST depression in lateral leads/TWI in inferolateral leads) ECHO obtained given no prior CAD. ECHO essentially normal study, no wma. Grade I diastolic dysfunction HRs improved, NSR on monitor/SB to 50s. No palpitations/CP/SOB Psych consulted -- patient agreeable to inpatient psych treatment. No SI/HI ideations at present needs local psych follow up Also does not have local PCP, asked CM to arrange for PCP but needs done at d/c from [facility] given unknown time for inpatient psych stay. 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 Has provider sees 2x/yr in [place] but no local assistance/psych care Psych to help arrange at d/c from inpatient once accepted (3) Nausea: reported 05/18, resolved with tums/pepcid avoided zofran to prevent QTC prolongation given above (4) Depression: mood stable at present but depressed affect, see above psych on consult, home meds held w/ exception of clonazepam further recs per psych during inpatient treatment appreciated Plan dc U when bed available Total Time Total Time Spent Total Time Spent (In Minutes): 40 Discharge Plan Discharge Items Patient Disposition: Transfer Behavioral Health Fac Reason For Visit: INTENTIONAL OVERDOSE Discharge Diagnosis: Intential Overdose Goals: You have been hospitalized for an acute medical problem. During your stay at [facility], we have made an effort to correct the problem that brought you to the hospital while keeping you as comfortable as possible. Medications were used to bring your condition under control and your discharge instructions will include directions for any medications you should take after leaving the hospital. Please make sure you see your Primary Care Provider as part of your follow up plan. Activity: As commented below Non-emergency contact: Primary Care Provider Call non-emergency contact if: you have any medication questions and you have a fever Follow-up/Referrals: PCP,NO [Primary Care Provider] - Diet: Regular Addtl Attending Provider Instructions: You were hospitalized for intentional overdose. You were monitored for any arrhythmia and treated conservatively with IV fluids. Psychiatry was consulted and you are being transferred to inpatient behavioral health. They will work on getting you a new primary care provider at discharge given unknown duration of inpatient stay It has been a pleasure being a part of the medical team providing for you while you have been in the hospital. Take care! Pending Studies at Discharge: No Stand-Alone Forms: My [facility] Medications and DC Order Prescriptions: Continued clonazepam 0.5 mg tablet 0.5 mg PO HS Discontinued paroxetine HCl 30 mg tablet 60 mg PO QAM risperidone 1 mg Tablet 1 mg PO HS risperidone 0.5 mg Tablet 0.5 mg PO QAM Discharge Orders: Discharge Order (Routine); Ordered 05/19/22 Ordered By: Karissa Jj Admission Data Admit Date/Time: 05/17/22 19:40 Attending Provider: Jasmina Jeffrey Admit Provider: Lisa Iqbal Primary Care Provider: PCP,NO Other Providers: Sudarshan Brasher ; Reyna Bauer ; Kaylie San Other Interventions: Discharge Summary Assessment (RN) Last Done: 05/19/22 14:28 Supervising Physician Co-Signing Physician Notes PA Supervision Note: I personally saw and examined the patient. I verified all galvez points and agree with FAUSTO Jj with the following exceptions and/or additions: S-Pt feeling better. Is eating and drinking, no CP,SOB. No nausea. O- Vitals reviewed Gen: [AAOx3, NAD] HEENT: [anicteric sclerae, EOMI] CV: [RRR no mgr nl S1S2] Pulm: [CTAB no wcr] Abd: [+BS soft NT ND no masses or hernias] Ext: [no edema Skin: [no rashes, warm/dry] A/P- 46 yo male with a h/o Canyon's disease, here with suicidal gesture, depression, overdose on risperdal Medically stable for discharge Abnormal ECG but ECHO normal, neg troponin, no ACS Coding Level of Care Code HOSP INP/OBS DISCH >30 MIN Diagnoses Intentional overdose T50.902A Canyon disease G10 Nausea R11.0 Depression F32.A
[2022-05-19] MEDS ORDERED: SODIUM CHLORIDE 0.9% 500 ML IV SCH (10:00)
== END 2022-05-19 16:10 ==
LOC: ED 15:15 → 2W 15:15 → SUATTDRO 19:40 → 2W 21:21

== ENCOUNTER 2022-05-19 13:35 | Inpatient (IN) ==
[2022-05-19] MEDS ORDERED: SODIUM CHLORIDE 0.65% NA SOLN 45 ML (OCEAN) PRN (13:38)
[2022-05-19] MEDS ORDERED: BISMUTH SUBSALICYLATE LIQD 236 ML PO PRN (13:38)
[2022-05-19] MEDS ORDERED: hydrOXYzine HCl 25 MG TAB PO PRN ×2 (13:38)
[2022-05-19] MEDS ORDERED: MAGNESIUM HYDROXIDE SUSP 30 ML UDC PO PRN (13:38)
[2022-05-19] MEDS ORDERED: ALUMINUM/MAGNESIUM SUSP 30 ML UDC PO PRN (13:38)
[2022-05-19] MEDS ORDERED: ACETAMINOPHEN 325 MG TAB PO PRN (13:38)
[2022-05-19] MEDS ORDERED: clonazePAM 0.5 MG TAB PO SCH (22:00)
--- NOTE | 2022-05-20 08:33 | History & Physical ---
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 Diagnostically consistent with mood, OCD-like intrusive thoughts and impulsivity effects of progression of his Ripley's Disease. Encouragingly his mood is improving but due to increased impulsivity he remains at high risk for self-harm given serious attempt prior to admission and needs inpatient psychiatric admission for diagnostic clarification, safety and stabilization, medication management and development of further coping skills. Discussed medication treatment options in detail. Discussed risks, benefits and alternatives. Patient would like to re-start and consented to Paxil for depression, impulsivity, OCD-like symptoms and Klonopin for sleep, anxiety, HD symptoms. Reviewed side effects including but not limited to: GI, OLIVER, sexual side effects, and counseled on black box warning of potential for emergence of or increased SI and need to let staff know should this occur or should they feel unsafe. Also discussed importance of seeking emergency care following discharge if this side effect occurs in the future. And potential for addiction, sedation, dizziness, confusion with Klonopin. 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 The patient will participate in group, recreational, and milieu therapies and will be offered additional individual and family sessions as clinically appropriate. -Restart prior to admission Paxil 60mg daily for depression, impulsivity and intrusive OCD-like thoughts, Klonopin 0.5mg hs for HD/anxiety, and will potentially re-titrate risperidone as reports multiple past failed medication trials and this has helped with intrusive thoughts -Soft diet -Attempt to get records from [facility] - to look into options for local providers as he would like a local psychiatric provider Inventory Assets Strengths: supportive family, outpatient providers, resilient Needs: safety and stabilization, medication re-titration/adjustment, diagnostic clarification, additional coping skills, safety planning, additional outpatient supports Suicide Risk Level Suicide Risk Level: Moderate (q15 min suicide checks) (suicide attempt but impulse and now glad to be alive and denies current SI, agrees to let nursing know if he re-develops SI or feels unable to remain safe) Risk Factors Assessment Male: Yes : Yes Do You Have Access To A Gun?: No Health Problems: Yes Mental Health Diagnoses: Yes Substance Use Disorders: No Previous Attempt: Yes Family History of Suicide: Yes (possibly ) Previous Psychiatric Hospitalization: Yes Protective Factors Assessment Yazidi Beliefs: Yes Stable Relationships: Yes Supportive Family: Yes Good Rapport with Provider: Yes Psychiatric History Identifying Data ANA PAULA LOPEZ is a 46-year-old M who currently lives in [place] with his mother (she is his primary toll operator due to his progressing HD), has a history of depression and Ripley's Disease, and was admitted on 05/19/22 13:38 on a 201 voluntary commitment for suicide attempt via overdose of risperidone. Chief Complaint "I like my medications, I don't think they are the issue it's my impulsivity". History of Present Illness Bulmaro presents for psychiatric admission following an impulsive suicide attempt via overdose of risperidone after an argument with his mother. He feels his medications are working well and that he hasn't been depressed but has been struggling with increased impulsivity. He is glad to be alive. He feels he is coping well with the progression of his Rudi's Disease and likes to walk to help with managing stress. He feels the only symptom that has bothered him in the past is intrusive thoughts which have resolved with the medication regimen he's on now. He feels he and his mother have most of their verbal arguments about budgeting and transport as he prefers to stock up on groceries to reduce the need for trips to the store and given that he can only tolerate certain foods due to his swallowing difficulties. His psychiatric medications for Rudi's disease including Paxil, risperidone and Klonopin are prescribed through the [facility] movement disorder clinic for Ripley's Disease. He is seen there every 6 months by his neurologist, egg caser, psychologist and OT/swallow specialist. Past Psychiatric History Current Psychiatric Diagnosis: MDD Outpatient Services: no local providers, seeing neurology through [facility] Previous Psych Admissions: [facility] about 4-5 years ago Do You Have Access To A Gun?: No History of Previous Suicide Attempt: Yes (~2x: does these acts impulsively) Describe Attempts in the Past: last attempt was 4-5 years ago due to intrusive thoughts, drown attemp Past Medication Trials: multiple-he can't recall but notes that many caused significant side effects and increased agitation Past Head Trauma/Neuro History History of Concussion/Seizure: No Allergies Allergy/AdvReac Type Severity Reaction Status Date / Time No Known Allergies Allergy Verified 05/20/22 11:08 Home Medications Medication Instructions Recorded Confirmed Type clonazepam 0.5 mg tablet 0.5 mg PO HS 05/17/22 05/20/22 History paroxetine HCl 40 mg tablet (Paxil) 60 mg PO DAILY 05/20/22 05/20/22 History risperidone 0.5 mg tablet 0.5 mg PO DAILY 05/20/22 05/20/22 History risperidone 1 mg tablet 1 mg PO HS 05/20/22 05/20/22 History Family History Family History of: Other-List under Comment (Ripley's disease) Family Mental Health History Comment: Father, grandfather, great grandmother of Rudi's disease. Alcohol History Hx of Alcohol Use Over the Past 12 Months: No AUDIT Total Score: 0 had increased his alcohol use after first having to stop working from the Ripley's disease progression but stopped drinking over 1 year ago and none since then Smoking Use Have You Smoked or Used Tobacco Products in the Last 30 Days: No Smoking Status: Never smoker Substance History Hx of Prescription Med Misuse Over the Past 12 Months: No Hx of Over the Counter Med Misuse Over the Past 12 Months: No Hx of Inhalent Misuse Over the Past 12 Months: No Hx of Organic Substance Use Over the Past 12 Months: No Hx of Illegal Substances/Street Drug Use Over Past 12 Months: No Problems as a Result of Past Substance Use: None Identified Personal History Living Arrangements: Home Childhood: Grandfather and father from Ripley's Disease. Has younger brother who lives in [facility][1]. Highest Grade Completed: College Highest Grade Completed Comment: BS in Psychology and Criminology. 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 Required: No Beliefs That Will Affect Care: None Current Living Situation: Parent Current Living Situation Comment: lives with mother Feels Safe at Home: Yes Gender Identity: Male Assistive Devices: None Review of Systems Review of Systems: All systems reviewed & are unremarkable except as noted in HPI & below (periodic swallowing issues ) Physical Exam Psychiatric: Orientation: alert and oriented x 3 Apperance: appropriately dressed and appropriately groomed Eye Contact: good eye contact Motor Behavior: + abnormal motor movements (mild jerky/choreform movements once or twice during interview ) Speech: + abnormal rate/rhythm/volume of speech (slight dysarthria ) Affect: + constricted affect Mood: + anxious mood; no depressed mood Thought Process: clear/coherent thought process and + circumstantial thought process Thought Content: reality based without delusions Suicidal Thoughts: denies suicidal thoughts (but attempt prior to admission requiring medical admission) Homicidal Thoughts: denies homicidal thoughts Hallucinations: no auditory hallucinations and no visual hallucinations Cognition: attention grossly intact and language grossly intact Estimated Intelligence: consistent with education level Insight: + fair insight Judgement: + limited judgement Vital Signs (Past 24 Hours): Last Vital Signs Temp 37.1 C 05/20/22 06:44 Pulse 78 05/20/22 06:45 Resp 16 05/20/22 06:44 BP 151/90 H 05/20/22 06:45 Pulse Ox 99 05/19/22 16:20 O2 Del Method 05/19/22 16:20 Exam Statement: A physical exam was performed on the medical floor by Dr. Jeffrey for the purposes of medical clearance. I accept that physical as correct and adequate for the purposes of the inpatient physical exam. Results & Data ([facility]) Current Inpatient Medications Current Inpatient Medications: Current Inpatient Medications Acetaminophen (Acetaminophen 325 Mg Tab) 650 mg PO Q4H PRN PRN Reason: Headache or Minor Fever Stop: 06/18/22 13:37 Al Hydrox/Mg Hydrox/Simethicone (Aluminum/Magnesium Susp 30 Ml Udc) 30 ml PO Q4H PRN PRN Reason: GI Upset Stop: 06/18/22 13:37 Bismuth Subsalicylate (Bismuth Subsalicylate Liqd 236 Ml) 15 ml PO PRN PRN PRN Reason: Loose Stool Stop: 06/18/22 13:37 Clonazepam (Clonazepam 0.5 Mg Tab) 0.5 mg PO HS [place] Stop: 06/18/22 21:59 Last Admin: 05/19/22 21:09 Dose: 0.5 mg Hydroxyzine HCl (Hydroxyzine Hcl 25 Mg Tab) 50 mg PO HSZ PRN PRN Reason: Insomnia Stop: 06/18/22 13:37 Hydroxyzine HCl (Hydroxyzine Hcl 25 Mg Tab) 25 mg PO Q4H PRN PRN Reason: Anxiety Stop: 06/18/22 13:37 Magnesium Hydroxide (Magnesium Hydroxide Susp 30 Ml Udc) 30 ml PO DAILY PRN PRN Reason: Constipation Stop: 06/18/22 13:37 Sodium Chloride (Sodium Chloride 0.65% Na Soln 45 Ml ([place])) 1 - 2 sprays NA PRN PRN PRN Reason: Nasal Dryness/Congestion Stop: 06/18/22 13:37
[2022-05-20] MEDS: PARoxetine HCL 20 MG TAB PO SCH (12:55)
[2022-05-20] MEDS: clonazePAM 0.5 MG TAB PO SCH (21:09)
[2022-05-21] MEDS: PARoxetine HCL 20 MG TAB PO SCH (08:31)
--- NOTE | 2022-05-21 09:20 | Psychiatric Progress Note ---
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 Diagnostically consistent with mood, OCD-like intrusive thoughts and impulsivity effects of progression of his Cody's Disease. Encouragingly his mood is improving but due to increased impulsivity he remains at high risk for self-harm given serious attempt prior to admission and needs inpatient psychiatric admission for diagnostic clarification, safety and stabilization, medication management and development of further coping skills. 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 Typically would choose alternative antipsychotic given suicide attempt but it was very impulsive and he feels it had been working well and had prior poor responses to medication with significant side effects so he prefers to resume risperidone. Discussed medication treatment options in detail. Discussed risks, benefits and alternatives. Patient would like to re-start and consented to risperidone for impulsivity, OCD-like symptoms. Reviewed side effects including but not limited to: movement (TD, NMS), cardiac (QTc prolongation), and metabolic (stroke, insulin resistance) and goal for routine fasting lipid and glucose labwork and AIMS done with score of 0. (1) Cody disease: (2) Intentional overdose: (3) Impaired impulse control: (4) Depressive disorder due to another medical condition with depressive features: Plan 05/21/22: -Restart risperidone 0.5mg HS 05/20/2022: The patient was admitted to the [facility] ([facility] mental health unit) on q15 min checks (behavioral with suicide precautions) for safety. The patient will participate in group, recreational, and milieu therapies and will be offered additional individual and family sessions as clinically appropriate. -Restart prior to admission Paxil 60mg daily for depression, impulsivity and intrusive OCD-like thoughts, Klonopin 0.5mg hs for HD/anxiety, and will potentially re-titrate risperidone as reports multiple past failed medication trials and this has helped with intrusive thoughts -Soft diet -Attempt to get records from [facility] clinic - to look into options for local providers as he would like a local psychiatric provider Inventory Assets Strengths: supportive family, outpatient providers, resilient Needs: safety and stabilization, medication re-titration/adjustment, diagnostic clarification, additional coping skills, safety planning, additional outpatient supports Suicide Risk Level Suicide Risk Level: Moderate (q15 min suicide checks) (suicide attempt but impulsive and now glad to be alive and denies current SI, agrees to let nursing know if he re-develops SI or feels unable to remain safe) Risk Factors Assessment Male: Yes : Yes Do You Have Access To A Gun?: No Health Problems: Yes Mental Health Diagnoses: Yes Substance Use Disorders: No Previous Attempt: Yes Family History of Suicide: Yes (possibly ) Previous Psychiatric Hospitalization: Yes Protective Factors Assessment Restoration Beliefs: Yes Stable Relationships: Yes Supportive Family: Yes Good Rapport with Provider: Yes Interval History Identifying Information ANA PAULA LOPEZ is a 46-year-old M who currently lives in [place] with his mother (she is his primary teller coordinator due to his progressing HD), has a history of depression and Cody's Disease, and was admitted on 05/19/22 13:38 on a 201 voluntary commitment for suicide attempt via overdose of risperidone. Chief Complaint "I'm good". Review of Systems Sleep Information Total Hours of Sleep: 8.25 Meal Information Percent Meal Consumed - Breakfast: 100 Percent Meal Consumed - Lunch: 100 Percent Meal Consumed - Dinner: 75 Subjective Subjective Patient was seen & assessed and interval progress reviewed with treatment team nursing and social work. Ritualized around showering, requires counting and took about 2.5 hours. He doesn't feel this an OCD-type symptom but rather a way he can ensure he is getting fully clean as he now needs to sit when he showers and the counting helps him. He feels his mood is "good" and notes "I like my life". Continues to want to work on skills to help with impulsivity. [facility] clinic remains closed today for holiday so discussed option to restart risperidone. Reviewed that given attempt was impulsive and risperidone has worked well I feel this is reasonable and he prefers risperidone to trying an alternative antipsychotic option for impulsivity. He recalled that fluoxetine caused a particularly bad reaction in the past. No side effects from restarted Paxil. Physical Exam Psychiatric Orientation: alert and oriented x 3 Apperance: appropriately dressed and appropriately groomed Eye Contact: good eye contact Motor Behavior: + abnormal motor movements (mild jerky/choreform movements, stiff gait ) Speech: + abnormal rate/rhythm/volume of speech (slight dysarthria ) Affect: + constricted affect Mood: + anxious mood; no depressed mood Thought Process: linear/logical thought process Thought Content: + obsessions and reality based without delusions Suicidal Thoughts: denies suicidal thoughts (but attempt prior to admission requiring medical admission) Homicidal Thoughts: denies homicidal thoughts Hallucinations: no auditory hallucinations and no visual hallucinations Cognition: attention grossly intact and language grossly intact Estimated Intelligence: consistent with education level Insight: + fair insight Judgement: + limited judgement Vital Signs (Past 24 Hours) Last Vital Signs Temp 36.9 C 05/21/22 06:42 Pulse 82 05/21/22 06:43 Resp 16 05/21/22 06:42 BP 133/73 05/21/22 06:43 Pulse Ox 99 05/19/22 16:20 O2 Del Method 05/19/22 16:20 Results & Data ([facility]) Current Inpatient Medications Current Inpatient Medications: Current Inpatient Medications Acetaminophen (Acetaminophen 325 Mg Tab) 650 mg PO Q4H PRN PRN Reason: Headache or Minor Fever Stop: 06/18/22 13:37 Al Hydrox/Mg Hydrox/Simethicone (Aluminum/Magnesium Susp 30 Ml Udc) 30 ml PO Q4H PRN PRN Reason: GI Upset Stop: 06/18/22 13:37 Bismuth Subsalicylate (Bismuth Subsalicylate Liqd 236 Ml) 15 ml PO PRN PRN PRN Reason: Loose Stool Stop: 06/18/22 13:37 Clonazepam (Clonazepam 0.5 Mg Tab) 0.5 mg PO HS [place] Stop: 06/19/22 21:59 Last Admin: 05/20/22 21:09 Dose: 0.5 mg Hydroxyzine HCl (Hydroxyzine Hcl 25 Mg Tab) 50 mg PO HSZ PRN PRN Reason: Insomnia Stop: 06/18/22 13:37 Hydroxyzine HCl (Hydroxyzine Hcl 25 Mg Tab) 25 mg PO Q4H PRN PRN Reason: Anxiety Stop: 06/18/22 13:37 Magnesium Hydroxide (Magnesium Hydroxide Susp 30 Ml Udc) 30 ml PO DAILY PRN PRN Reason: Constipation Stop: 06/18/22 13:37 Paroxetine HCl (Paroxetine Hcl 20 Mg Tab) 60 mg PO DAILY [place] Stop: 06/19/22 12:59 Last Admin: 05/21/22 08:31 Dose: 60 mg Sodium Chloride (Sodium Chloride 0.65% Na Soln 45 Ml ([place])) 1 - 2 sprays NA PRN PRN PRN Reason: Nasal Dryness/Congestion Stop: 06/18/22 13:37
[2022-05-21] MEDS: clonazePAM 0.5 MG TAB PO SCH (20:19)
[2022-05-21] MEDS ORDERED: risperiDONE 0.5 MG TABLET PO SCH (22:00)
[2022-05-22] MEDS: PARoxetine HCL 20 MG TAB PO SCH (08:23)
--- NOTE | 2022-05-22 08:42 | Psychiatric Progress Note ---
Date of Service May 22, 2022 Impression / Recommendations Impression Bulmaro is a 46 year old with a history of [place]'s Disease who was admitted for impulsive suicide attempt via overdose of risperidone requiring medical admission. Diagnostically consistent with mood, OCD-like intrusive thoughts and impulsivity effects of progression of his [place]'s Disease. Encouragingly his mood is improving but due to increased impulsivity he remains at high risk for self-harm given serious attempt prior to admission and needs inpatient psychiatric admission for diagnostic clarification, safety and stabilization, medication management and development of further coping skills. MNPR due to [place]'s disease with obsessions/intrusive thoughts 05/22/2022: Mood stable but requires re-titration of risperidone, tolerated initiation dose last night well and no tachycardia today. Typically would choose alternative antipsychotic given suicide attempt but it was very impulsive and he feels it had been working well and had prior poor responses to medication with significant side effects so he prefers to continue with risperidone. SW exploring more local CM options and attempting to coordinate with his [facility] clinic. (1) Pittsburgh disease: (2) Intentional overdose: (3) Impaired impulse control: (4) Depressive disorder due to another medical condition with depressive features: Plan 05/22/22: Increase risperidone to 1mg HS; goal to eventually get back to prior dose of 0.5mg qAM and 1 mg HS. 05/21/22: -Restart risperidone 0.5mg HS 05/20/2022: The patient was admitted to the [facility] ([facility] mental health unit) on q15 min checks (behavioral with suicide precautions) for safety. The patient will participate in group, recreational, and milieu therapies and will be offered additional individual and family sessions as clinically appropriate. -Restart prior to admission Paxil 60mg daily for depression, impulsivity and intrusive OCD-like thoughts, Klonopin 0.5mg hs for HD/anxiety, and will potentially re-titrate risperidone as reports multiple past failed medication trials and this has helped with intrusive thoughts -Soft diet -Attempt to get records from [facility] clinic -SW to look into options for local providers as he would like a local psychiatric provider Inventory Assets Strengths: supportive family, outpatient providers, resilient Needs: safety and stabilization, medication re-titration/adjustment, diagnostic clarification, additional coping skills, safety planning, additional outpatient supports Suicide Risk Level Suicide Risk Level: Moderate (q15 min suicide checks) (suicide attempt but impulsive and now glad to be alive and denies current SI, agrees to let nursing know if he re-develops SI or feels unable to remain safe) Risk Factors Assessment Male: Yes : Yes Do You Have Access To A Gun?: No Health Problems: Yes Mental Health Diagnoses: Yes Substance Use Disorders: No Previous Attempt: Yes Family History of Suicide: Yes (possibly ) Previous Psychiatric Hospitalization: Yes Protective Factors Assessment Restorationist Beliefs: Yes Stable Relationships: Yes Supportive Family: Yes Good Rapport with Provider: Yes Interval History Identifying Information ANA PAULA LOPEZ is a 46-year-old M who currently lives in [place] with his mother (she is his primary orthophotography technician due to his progressing HD), has a history of depression and Pittsburgh's Disease, and was admitted on 05/19/22 13:38 on a 201 voluntary commitment for suicide attempt via overdose of risperidone. Chief Complaint "I'm pretty good". Review of Systems Sleep Information Total Hours of Sleep: 8.75 Meal Information Percent Meal Consumed - Breakfast: 100 Percent Meal Consumed - Lunch: 75 Percent Meal Consumed - Dinner: 100 Subjective Subjective Patient was seen & assessed and interval progress reviewed with treatment team nursing and social work. Did laundry last night. Sleeping well. Mood is stable today. No side effects from restarting risperidone. Expresses gratitude for being able to restart risperidone recalling prior poor responses to different medications and supplements that caused him to experience high degrees of anger. Reflects on how Pittsburgh's disease has impacted and heightened his emotional reactivity, noting he can be relaxing and suddenly experience feelings of anger but finds with his medications he feels less anger and no intrusive angry thoughts. Reviewed SW attempting to collaborate with [facility] HD clinic. Physical Exam Psychiatric Orientation: alert and oriented x 3 Apperance: appropriately dressed and appropriately groomed Eye Contact: good eye contact Motor Behavior: + abnormal motor movements (mild jerky/choreform movements, stiff gait ) Speech: + abnormal rate/rhythm/volume of speech (slight dysarthria ) Affect: + constricted affect Mood: + anxious mood; no depressed mood Thought Process: linear/logical thought process Thought Content: + obsessions and reality based without delusions Suicidal Thoughts: denies suicidal thoughts (but attempt prior to admission requiring medical admission) Homicidal Thoughts: denies homicidal thoughts Hallucinations: no auditory hallucinations and no visual hallucinations Cognition: attention grossly intact and language grossly intact Estimated Intelligence: consistent with education level Insight: + fair insight Judgement: + limited judgement Vital Signs (Past 24 Hours) Last Vital Signs Temp 36.5 C 05/22/22 06:36 Pulse 75 05/22/22 06:37 Resp 16 05/22/22 06:36 BP 127/76 05/22/22 06:37 Pulse Ox 99 05/19/22 16:20 O2 Del Method 05/19/22 16:20 Results & Data ([facility]) Current Inpatient Medications Current Inpatient Medications: Current Inpatient Medications Acetaminophen (Acetaminophen 325 Mg Tab) 650 mg PO Q4H PRN PRN Reason: Headache or Minor Fever Stop: 06/18/22 13:37 Al Hydrox/Mg Hydrox/Simethicone (Aluminum/Magnesium Susp 30 Ml Udc) 30 ml PO Q4H PRN PRN Reason: GI Upset Stop: 06/18/22 13:37 Bismuth Subsalicylate (Bismuth Subsalicylate Liqd 236 Ml) 15 ml PO PRN PRN PRN Reason: Loose Stool Stop: 06/18/22 13:37 Clonazepam (Clonazepam 0.5 Mg Tab) 0.5 mg PO HS [place] Stop: 06/19/22 21:59 Last Admin: 05/21/22 20:19 Dose: 0.5 mg Hydroxyzine HCl (Hydroxyzine Hcl 25 Mg Tab) 50 mg PO HSZ PRN PRN Reason: Insomnia Stop: 06/18/22 13:37 Hydroxyzine HCl (Hydroxyzine Hcl 25 Mg Tab) 25 mg PO Q4H PRN PRN Reason: Anxiety Stop: 06/18/22 13:37 Magnesium Hydroxide (Magnesium Hydroxide Susp 30 Ml Udc) 30 ml PO DAILY PRN PRN Reason: Constipation Stop: 06/18/22 13:37 Paroxetine HCl (Paroxetine Hcl 20 Mg Tab) 60 mg PO DAILY [place] Stop: 06/19/22 12:59 Last Admin: 05/22/22 08:23 Dose: 60 mg Risperidone (Risperidone 0.5 Mg Tablet) 0.5 mg PO HS [place] Stop: 06/20/22 21:59 Last Admin: 05/21/22 20:20 Dose: 0.5 mg Sodium Chloride (Sodium Chloride 0.65% Na Soln 45 Ml ([place])) 1 - 2 sprays NA PRN PRN PRN Reason: Nasal Dryness/Congestion Stop: 06/18/22 13:37
[2022-05-22] MEDS: clonazePAM 0.5 MG TAB PO SCH (20:33)
[2022-05-22] MEDS: risperiDONE 1 MG TABLET PO SCH (20:34)
[2022-05-23] MEDS: PARoxetine HCL 20 MG TAB PO SCH (08:12)
--- NOTE | 2022-05-23 17:54 | Psychiatric Progress Note ---
Date of Service May 23, 2022 Impression / Recommendations Impression Bulmaro is a 46 year old with a history of La Salle's Disease who was admitted for impulsive suicide attempt via overdose of risperidone requiring medical admission. Diagnostically consistent with mood, OCD-like intrusive thoughts and impulsivity effects of progression of his La Salle's Disease. Encouragingly his mood is improving but due to increased impulsivity he remains at high risk for self-harm given serious attempt prior to admission and needs inpatient psychiatric admission for diagnostic clarification, safety and stabilization, medication management and development of further coping skills. 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 safety planning. 05/22/22: Increase risperidone to 1mg HS; goal to eventually get back to prior dose of 0.5mg qAM and 1 mg HS. 05/21/22: -Restart risperidone 0.5mg HS 05/20/2022: The patient was admitted to the [facility] ([facility] inpatient mental health unit) on q15 min checks (behavioral with suicide precautions) for safety. The patient will participate in group, recreational, and milieu therapies and will be offered additional individual and family sessions as clinically appropriate. -Restart prior to admission Paxil 60mg daily for depression, impulsivity and intrusive OCD-like thoughts, Klonopin 0.5mg hs for HD/anxiety, and will potentially re-titrate risperidone as reports multiple past failed medication trials and this has helped with intrusive thoughts -Soft diet -Attempt to get records from [facility] to look into options for local providers as he would like a local psychiatric provider Inventory Assets Strengths: supportive family, outpatient providers, resilient Needs: safety and stabilization, medication re-titration/adjustment, diagnostic clarification, additional coping skills, safety planning, additional outpatient supports Suicide Risk Level Suicide Risk Level: Moderate (q15 min suicide checks) Risk Factors Assessment Male: Yes : Yes Do You Have Access To A Gun?: No Health Problems: Yes Mental Health Diagnoses: Yes Substance Use Disorders: No Previous Attempt: Yes Family History of Suicide: Yes (possibly ) Previous Psychiatric Hospitalization: Yes Protective Factors Assessment Shinto Beliefs: Yes Stable Relationships: Yes Supportive Family: Yes Good Rapport with Provider: Yes Interval History Identifying Information ANA PAULA LOPEZ is a 46-year-old M who currently lives in [place] with his mother (she is his primary interior block wirer due to his progressing HD), has a history of depression and La Salle's Disease, and was admitted on 05/19/22 13:38 on a 201 voluntary commitment for suicide attempt via overdose of risperidone. Chief Complaint "please don't change my medicine, I feel good". Review of Systems Sleep Information Total Hours of Sleep: 7 Meal Information Percent Meal Consumed - Breakfast: 100 Percent Meal Consumed - Lunch: 100 Percent Meal Consumed - Dinner: 50 Subjective Subjective Patient was seen & assessed and interval progress reviewed with treatment team. cooperative with unit routines. had family meeting with mother that went well. Physical Exam Psychiatric Orientation: alert and oriented x 3 Apperance: appropriately dressed and appropriately groomed Eye Contact: good eye contact Motor Behavior: + abnormal motor movements (mild jerky/choreform movements, stiff gait ) Speech: + abnormal rate/rhythm/volume of speech (slight dysarthria ) Affect: + constricted affect Mood: + anxious mood; no depressed mood Thought Process: + perseveration and + concrete thought process Thought Content: reality based without delusions Suicidal Thoughts: denies suicidal thoughts Homicidal Thoughts: denies homicidal thoughts Hallucinations: no auditory hallucinations and no visual hallucinations Cognition: attention grossly intact and language grossly intact Estimated Intelligence: consistent with education level Vital Signs (Past 24 Hours) Last Vital Signs Temp 36.6 C 05/23/22 06:41 Pulse 75 05/23/22 06:41 Resp 16 05/23/22 06:41 BP 126/85 05/23/22 06:41 Pulse Ox 99 05/19/22 16:20 O2 Del Method 05/19/22 16:20 Results & Data ([facility]) Current Inpatient Medications Current Inpatient Medications: Current Inpatient Medications Acetaminophen (Acetaminophen 325 Mg Tab) 650 mg PO Q4H PRN PRN Reason: Headache or Minor Fever Stop: 06/18/22 13:37 Al Hydrox/Mg Hydrox/Simethicone (Aluminum/Magnesium Susp 30 Ml Udc) 30 ml PO Q4H PRN PRN Reason: GI Upset Stop: 06/18/22 13:37 Bismuth Subsalicylate (Bismuth Subsalicylate Liqd 236 Ml) 15 ml PO PRN PRN PRN Reason: Loose Stool Stop: 06/18/22 13:37 Clonazepam (Clonazepam 0.5 Mg Tab) 0.5 mg PO HS [place] Stop: 06/19/22 21:59 Last Admin: 05/22/22 20:33 Dose: 0.5 mg Hydroxyzine HCl (Hydroxyzine Hcl 25 Mg Tab) 50 mg PO HSZ PRN PRN Reason: Insomnia Stop: 06/18/22 13:37 Hydroxyzine HCl (Hydroxyzine Hcl 25 Mg Tab) 25 mg PO Q4H PRN PRN Reason: Anxiety Stop: 06/18/22 13:37 Magnesium Hydroxide (Magnesium Hydroxide Susp 30 Ml Udc) 30 ml PO DAILY PRN PRN Reason: Constipation Stop: 06/18/22 13:37 Paroxetine HCl (Paroxetine Hcl 20 Mg Tab) 60 mg PO DAILY [place] Stop: 06/19/22 12:59 Last Admin: 05/23/22 08:12 Dose: 60 mg Risperidone (Risperidone 1 Mg Tablet) 1 mg PO HS [place] Stop: 06/21/22 21:59 Last Admin: 05/22/22 20:34 Dose: 1 mg Sodium Chloride (Sodium Chloride 0.65% Na Soln 45 Ml ([place])) 1 - 2 sprays NA PRN PRN PRN Reason: Nasal Dryness/Congestion Stop: 06/18/22 13:37 Mental Health & Subst Abuse Tx [employer] Name of [employer]ace [employer]orer: [employer] Phone Number for [employer]: [phone] Time of Appointment with [employer] Laborer: Intake will follow-up with you directly to assign a blended upper caser. Case Management Appointment Comment: Current wait is until about July of 2022. Post Discharge Appointments Primary Care Physician Name Of Family Doctor/PCP: [facility] Time of Appointment with PCP: 3:05 PM Provider Appointment Comment: [address], [place] [id number] Neurologist Name of Neurologist: [facility] - Dr. Siu Neurologist's Date of Appointment with Neurologist: 06/13/22 Time of Appointment with Neurologist: 8:00 AM Neurology Appointment Comment: [address] [place] [address], [address], [place] [address] Contact Information Discharge Discharge Address: [facility] [address], [place] [address]
[2022-05-23] MEDS: clonazePAM 0.5 MG TAB PO SCH (21:06)
[2022-05-23] MEDS: risperiDONE 1 MG TABLET PO SCH (21:06)
[2022-05-24] MEDS: PARoxetine HCL 20 MG TAB PO SCH (08:34)
--- NOTE | 2022-05-24 09:43 | Discharge Summary ---
Date of Service May 24, 2022 History of Present Illness As per Dr. Bauer on admission: Bulmaro presents for psychiatric admission following an impulsive suicide attempt via overdose of risperidone after an argument with his mother. He feels his medications are working well and that he hasn't been depressed but has been struggling with increased impulsivity. He is glad to be alive. 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 He feels the only symptom that has bothered him in the past is intrusive thoughts which have resolved with the medication regimen he's on now. He feels he and his mother have most of their verbal arguments about budgeting and transport as he prefers to stock up on groceries to reduce the need for trips to the store and given that he can only tolerate certain foods due to his swallowing difficulties. His psychiatric medications for Parker's disease including Paxil, risperidone and Klonopin are prescribed through the [facility] movement disorder clinic for Parker's Disease. He is seen there every 6 months by his neurologist, rn case mgr, psychologist and OT/swallow specialist. Physical Exam Psychiatric See admission H&P and DOD assessment. 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 In short, safety was maintained and the patient was cooperative with care. Medication changes included restart of Paxil and Risperdal retitrated to 1 mg hs. Klonopin hs was added and they tolerated this well. A family session was held with mother and safety plan was completed prior to discharge. He voiced good understanding of the risks of his medication, particularly antipsychotic specific to his Morgan's and need for longer term monitoring. Day of Discharge Assessment Today the patient voices readiness for discharge. They note improvement in mood and deny thoughts to harm self or others. Thoughts remain organized and they are improved from admission. There is no evidence of psychosis. They agree to take mediations as prescribed and keep follow-up appointments. They are stable for discharge to outpatient level of care. Transition of Care Transition Of Care Record: was reviewed with the patient Advance Directives Advance Directives Information Provided: Yes Advance Directives: No Mental Health Advance Directive: No Advance Directives on File: No Living Will: No Power of Boathouse Keeper: No Advance Directives Reason:: Declines as Mental Health Visit. Suicide Risk Level Suicide Risk Level Comments: Suicide risk at discharge is deemed low as the patient is no longer requiring 24-hr monitoring, has a safety plan, and is free of suicidal ideation at discharge. Risk Factors Assessment Male: Yes : Yes Do You Have Access To A Gun?: No Health Problems: Yes Mental Health Diagnoses: Yes Substance Use Disorders: No Previous Attempt: Yes Family History of Suicide: Yes (possibly ) Previous Psychiatric Hospitalization: Yes Protective Factors Assessment Church Beliefs: Yes Stable Relationships: Yes Supportive Family: Yes Good Rapport with Provider: Yes Tobacco Cessation at Discharge Tobacco Cessation Medication Prescribed at Discharge: Not Applicable/Non-Smoker Total Time Total Time Spent: Greater Than 30 Minutes Total Time Includes: Examination of the patient, Discharge Planning and Medication Reconciliation Hospital Course (1) Depressive disorder due to another medical condition with depressive features: (2) Parker disease: (3) Intentional overdose: (4) Impaired impulse control: Plan 05/23/22: continue Risperdal 1 mg and Paxil, additional changes unlikely before discharge. safety planning. 05/22/22: Increase risperidone to 1mg HS; goal to eventually get back to prior dose of 0.5mg qAM and 1 mg HS. 05/21/22: -Restart risperidone 0.5mg HS 05/20/2022: The patient was admitted to the [facility] ([facility] inpatient mental health unit) on q15 min checks (behavioral with suicide precautions) for safety. The patient will participate in group, recreational, and milieu therapies and will be offered additional individual and family sessions as clinically appropriate. -Restart prior to admission Paxil 60mg daily for depression, impulsivity and intrusive OCD-like thoughts, Klonopin 0.5mg hs for HD/anxiety, and will potentially re-titrate risperidone as reports multiple past failed medication trials and this has helped with intrusive thoughts -Soft diet -Attempt to get records from [facility] clinic - to look into options for local providers as he would like a local psychiatric provider Mental Health & Subst Abuse Tx Airport Shuttle Driver Name of Airport Shuttle Driver: [employer] Phone Number for Airport Shuttle Driver: [phone] Time of Appointment with Airport Shuttle Driver: Intake will follow-up with you directly to assign a blended foster care case manager. Case Management Appointment Comment: Current wait is until about July of 2022. Post Discharge Appointments Primary Care Physician Name Of Family Doctor/PCP: Janell - Dr. Sam Primary [facility] Time of Appointment with PCP: 3:05 PM Provider Appointment Comment: [address] , [place] [address] Neurologist Name of Neurologist: [facility] - Dr. Siu Neurologist's Date of Appointment with Neurologist: 06/13/22 Time of Appointment with Neurologist: 8:00 AM Neurology Appointment Comment: [address] [place] [address], [address] [address] Smoking Cessation Counseling Tobacco Cessation Medication Prescribed at Discharge: Not Applicable/Non-Smoker Other #1: Name of Aftercare Appointment: [facility] Phone Number of Aftercare Appointment: Aftercare Appointment Comment: Call to request intake for group therapy #2: Name of Aftercare Appointment: Parker's Disease [employer] [facility] Phone Number of Aftercare Appointment: [phone] ([phone] Time of Aftercare Appointment: Contact or call to enroll in support groups. 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 Follow through with your scheduled aftercare appointments. If unable to keep an appointment, please call to reschedule. 2. Take your medication only as prescribed. Medication should not be changed or stopped without the approval of your doctor. In the event of worsening symptoms or concerns about side effects, contact your doctor immediately. 3. Utilize new healthy coping skills, anger management skills, and stress management skills learned during your hospitalization. Journal feelings and process them with a support person. Identify stressors or situations that may result in relapse, deterioration or inappropriate behaviors and develop a plan to deal with those issues. 4. If your coping skills are ineffective and you are in crisis, contact your outpatient providers for direction. If unable to reach your providers, please call the [facility] CRISIS LINE AT , go to the [facility] walk-in center at [address], [address], [place], or go to the closest Emergency Room. 5. Avoid alcohol and un-prescribed drugs. 6. You have been provided with the Mental Health Advance Directives Pamphlet for your review. 7. Your condition is stable for discharge to outpatient level of care, but recovery is an ongoing process. Ifthoughts to harm yourself or others return, follow the safety plan developed during your stay. Planning for a safe return home includes securing weapons. Our treatment team recommends weaponsbe removed from the home until your outpatient provider reassesses your progress. In rare cases where the items themselvescannot be removed, guns and ammunitionshould be secured separatelyand keys stored by a reliable personoutside of the home. If you were admitted on an involuntary commitment, the police or other legal authorities may be involved in this process. AFTERCARE APPOINTMENTS: * Please call your insurance company prior to your scheduled appointment to confirm your aftercare providers are covered. Take your insurance information to your appointments. WHO TO CALL AND WHEN: Medical Emergencies: For questions or emergencies related to your hospital stay, please contact the Inpatient Behavioral Health Unit at [phone]. A linemarker is on-call 26/11 for the Behavioral Health Unit for emergencies At any time you feel your situation is an emergency, you may also call 911 immediately. Pending Studies at Discharge: No Stand-Alone Forms: My Applits, Smoking Cessation Medications and DC Order Prescriptions: Continued clonazepam 0.5 mg tablet 0.5 mg PO HS Qty: 30 0RF risperidone 1 mg Tablet 1 mg PO HS Qty: 30 0RF paroxetine HCl [Paxil] 40 mg Tablet 60 mg PO DAILY Qty: 45 0RF Discontinued risperidone 0.5 mg Tablet 0.5 mg PO DAILY Discharge Orders: Discharge Order (Routine); Ordered 05/24/22 Ordered By: Kaylie San Admission Data Admit Date/Time: 05/19/22 13:38 Attending Provider: Kaylie San Admit Provider: Reyna Bauer Primary Care Provider: PCP,NO Other Interventions: Discharge Summary Assessment (RN) Last Done: 05/24/22 10:42 PSY Interdisciplinary Discharge Planning Last Done: 05/24/22 10:59 Coding Level of Care Code 52901 D/C day mgmt > 30 min Diagnoses Depressive disorder due to another medical condition with depressive features F06.31 Parker disease G10 Intentional overdose T50.902A Impaired impulse control F63.9
== END 2022-05-24 12:20 | disposition home or self-care (01) | DRG 918 ==
LOC: 3S 13:38 → SUATTDRO 13:38 → 3S 16:16